=== PATIENT | female | born 1950 | race Caucasian/White ===

== ENCOUNTER 2016-10-08 06:45 | Emergency (ER) | payer OTHER, MEDICAID ==
[~2016-10-08] VITALS: Wt 72.0 kg
[2016-10-08] MEDS ORDERED: SOD CHLORIDE 0.9% 1,000 ML IV STA (07:37)
[2016-10-08 07:51] LABS: ADD UMIC YES; URINE BILIRUBIN (Dip) NEGATIVE (NEGATIVE); URINE BLOOD (Dip) TRACE (NEGATIVE); URINE COLOR LT. YELLOW (YELLOW); URINE GLUCOSE (Dip) NEGATIVE (NEGATIVE); URINE KETONES (Dip) NEGATIVE (NEGATIVE); URINE LEUKOCYTE ESTERASE (Dip) 1+ (NEGATIVE); URINE NITRITE (Dip) NEGATIVE (NEGATIVE); URINE TOTAL PROTEIN (Dip) 1+ (NEGATIVE); URINE UROBILINOGEN (Dip) 0.2 E.U./dL (0.1-1.0)
[2016-10-08 07:59] LABS: ALBUMIN 4.4 g/dl (3.3-4.9); BASOPHILS % 0.2 % (0.0-2.0); EOSINOPHILS # 0.2 10^3/ul (0.0-0.5); EOSINOPHILS % 1.9 % (0.0-7.0); HEMATOCRIT 40.1 % (37.0-47.0); HEMOGLOBIN 13.9 g/dl (12.0-16.0); LYMPHOCYTES % 30.4 % (15.0-51.0); MEAN CORPUSCULAR HEMOGLOBIN 29.9 pg (29.0-33.0); MEAN CORPUSCULAR HGB CONC 34.5 g/dl (32.0-37.0); MEAN CORPUSCULAR VOLUME 86.5 fl (82.0-101.0); MEAN PLATELET VOLUME 9.3 fl (7.4-10.4); MONOCYTE # 0.8 10^3/ul (0.3-0.9); MONOCYTES % 7.8 % (0.0-11.0); NEUTROPHILS % 59.7 % (39.0-77.0); PLATELET COUNT 226 10^3/UL (140-440); RED BLOOD COUNT 4.63 10^6/ul (4.20-5.40); RED CELL DISTRIBUTION WIDTH 12.8 % (11.5-14.5)
[2016-10-08 08:00] LABS: POTASSIUM 3.6 mmol/L (3.5-5.1)
[2016-10-08 08:02] LABS: BILIRUBIN,INDIRECT 0.2 mg/dl (0-1.1); BILIRUBIN,TOTAL 0.2 mg/dl (0.2-1.3); CONDITION 1; CREATININE 0.59 mg/dl (0.44-1.00)
[2016-10-08 08:03] LABS: ALBUMIN/GLOBULIN RATIO 1.51; CALCIUM 10.1 mg/dl (8.4-10.2); TOTAL PROTEIN 7.3 g/dl (6.1-8.1)
[2016-10-08 08:28] LABS: SQUAMOUS EPITHELIAL CELL,UR FEW; URINE RBCS 0-2 /HPF (0)
--- NOTE | 2016-10-08 08:44 | RADRPT ---
AMENDMENT: 10/08/2016 8:54:39 AM Pedro Nova M.D Metastatic disease although considered less likely given the lack of parenchymal edema is also a dif ferential diagnostic consideration. PROCEDURE: CT Brain without contrast. CLINICAL INDICATION: dizziness TECHNIQUE: A multiplanar CT of the brain was performed on a CT scanner utilizing axial imaging fro m the skull base through the vertex without IV contrast. One or more of the following dose reducti on techniques were utilized: Automated exposure control, adjustment of the mA and/or kV according t o patient size, use of iterative reconstruction technique. COMPARISON: None FINDINGS: There is an ill-defined evidence of lesion with coarse calcifications adjacent to or within the fron gilberto horn of the right lateral ventricle measuring 12 x 10 in millimeters in AP and transverse dimens ions respectively. There is no evidence of side vasogenic edema, mass effect or shift. Differential diagnostic considerations include intraventricular meningioma, subependymoma/ependymoma , central neurocytoma, or CPP. Astrocytoma, oligodendroglioma, or etiologies not excluded but consid ered less likely. MRI is recommended for further evaluation. There is no evidence of intracranial hemorrhage or abnormal extra-axial fluid collection. The remaining brain parenchyma is normal attenuation morphology with preservation of ann white diff erentiation and age appropriate size of the ventricles and subarachnoid spaces. The posterior fossa contents, brainstem, craniocervical junction, orbits, pituitary axis, paranasal sinuses, mastoid air cells, and calvarium are unremarkable. IMPRESSION: 1. 12 x 10 mm intraventricular/periventricular partially calcified hyperdense mass in the region of the anterior horn right lateral ventricle. Differential diagnostic considerations discussed in det ail above. No evidence of leobardo tumoral edema or shift . Contrast-enhanced MRI is recommended for fu rther evaluation. 2. No intracranial hemorrhage or other acute intracranial abnormality. RPTAT:AAJJ Physician Hilton Date Time Electronically viewed and signed by Physician Hilton on 10/08/2016 08:55 MIKAL/
[2016-10-08] MEDS ORDERED: BENZ100C70 PO (09:12)
[2016-10-08] MEDS ORDERED: D-ME473S18 PO (09:12)
[2016-10-08] MEDS ORDERED: NITR-58 PO (09:21)
[2016-10-08 09:26] VITALS: BP 121/65; PULSE 77; RESP 18
--- NOTE | 2016-10-08 13:10 | ERD ---
DATE OF SERVICE: HISTORY OF PRESENT ILLNESS: The patient is a 66-year-old female coming in complaining of a cough an d congestion with sore throat and some dizziness. Patient states it has been going on the last 5 da ys. She has had no fevers. She has had a productive cough and had a mild runny nose. She has had 1 episode of vomiting, no abdominal pain, no chest pain, or shortness of breath. Denies any changes in urination or bowel movement. No sick contacts. PAST MEDICAL HISTORY: Hypertension. ALLERGIES TO MEDICATION: Denies. SURGICAL HISTORY: Denies. SOCIAL HISTORY: Denies. REVIEW OF SYSTEMS: A 12-point review of systems was done. Refer to HPI for positives, all other sy stems negative. PHYSICAL EXAMINATION VITAL SIGNS: Temperature is 99.2, pulse is 100, blood pressure is 146/68, respiratory rate 22, O2 s aturation 98% on room air, and pain intensity of 5/10. GENERAL: The patient is well-appearing, well-nourished, in no acute distress. HEART: Regular rate and rhythm. No murmurs, clicks, rubs or gallops. No S3 or S4. CHEST: Clear to auscultation bilaterally. There are no rales, wheezes or rhonchi. HEENT: Atraumatic. Conjunctivae are pink. Pupils equal, round, and reactive to light. There is no s cleral icterus. Tympanic membranes clear bilaterally. Oropharynx clear. No nystagmus or photophobia . NEURO: Alert and oriented. Cranial nerves 2-12 intact. Motor strength in all 4 extremities with 5/5 strength. Sensation grossly intact. Normal speech and gait. Babinski negative. DTR 2+ throughout. SKIN: There is no apparent rash or petechia. The skin is warm and dry. BACK: No midline or flank tenderness. ABDOMEN: Soft, nontender and nondistended. Good bowel sounds. No rebound or guarding. No gross leobardo tonitis. No gross organomegaly or masses. No Santiago sign or McBurney point tenderness. EMERGENCY ROOM COURSE: The patient had blood work done in the ER. CBC was within normal limits. C MP was within normal limits. The patient's urine showed 1+ leukocytes with 10 to 25 white blood hilary ls. The patient had a brain CT done in the ER which showed a 12 x 10 mm intraventricular, periventricula r, partially calcified hyperdense mass in the region of the anterior horn of right lateral ventricle . Differential diagnosis considerations are intraventricular meningioma, subependymoma, centr al neurocytoma or a CPP astrocytoma, oligodendroglioma. Recommend close followup. No intracranial hemorrhage or other acute intracranial abnormality. Patient was given a liter of normal saline and reevaluated, and given Robitussin. Patient is ambula ting without any difficulties and did not appear to be off balance or have neuro deficits. DIAGNOSES 1. Upper respiratory infection. 2. Dizziness. 3. Urinary tract infection. MEDICAL DECISION MAKING: Patient's neurologic exam is within normal limits. Patient is ambulating without any difficulty. Patient does not appear toxic in nature. I did not feel that there was ind ication for further workup at this time. I have a low suspicion for intracranial hemorrhage or neur o deficits. The patient will be recommended to follow up with primary doctor for close evaluation. DISCHARGE: The patient is discharged stable. Patient is given a prescription for Phenergan DM and Tessalon. The patient was told to continue taking Keflex as previously prescribed for her urinary t ract infection. All other questions answered at time of discharge. Discharge summary given at the time of departure. Patient understood and complied with plan. Dictated By: KYLE PRADHAN for CECY DUFFY/XI Conf#: [id number] DID#: [id number]
== END 2016-10-08 09:27 | disposition home or self-care (01) ==
LOC: FTE 06:45
DX: J06.9 Acute upper respiratory infection, unspecified (principal); R42 Dizziness and giddiness; N39.0 Urinary tract infection, site not specified; I10 Essential (primary) hypertension
CPT/HCPCS: 36415; 70450; 80053; 81001; 83690; 85025; 99285; J7030; 81003

== ENCOUNTER 2018-12-19 23:38 | Emergency (ER) | payer OTHER, MEDICAID ==
[~2018-12-19] VITALS: Wt 74.4 kg
[~2018-12-19 23:38] MED LIST: BENZ-6 PO; D-ME473S18 PO
[2018-12-19 23:46] VITALS: BP 159/77; PULSE 78; RESP 18
[2018-12-20] MEDS ORDERED: ONDANSETRON (ODT) 4 MG TAB ODT STA (03:49)
[2018-12-20] MEDS ORDERED: MECLIZINE 12.5 MG TAB PO ONE (04:00)
[2018-12-20] MEDS ORDERED: ONDA4TAB14 PO (04:41)
[2018-12-20] MEDS ORDERED: MECL-77 PO (04:42)
--- NOTE | 2018-12-20 04:45 | ERD ---
ER Documentation Chief Complaint Chief Complaint dizziness/nausea x 5 hours HPI 68-year-old female presents for dizziness and nausea x5 hours. She has past medical history of hypertension and GERD. She states that she has some nausea however denies any vomiting. Denies fevers. Denies shortness of breath or chest pain. She is able to walk despite being dizzy. She denies any weakness. No other modifying factors noted. No other treatments tried at home. ROS All systems reviewed and are negative except as per history of present illness. Medications Home Meds Active Scripts Meclizine Hcl* (Meclizine Hcl*) 25 Mg Tablet, 25 MG PO Q8H PRN for DIZZINESS, #30 TAB Prov:ASTERANGELA 12/20/18 Ondansetron (Ondansetron Odt) 4 Mg Tab.rapdis, 4 MG PO Q6H PRN for NAUSEA AND/OR VOMITING, #15 TAB Prov:ANGELA RODARTE DO 12/20/18 Benzonatate* (Tessalon Perle*) 100 Mg Capsule, 100 MG PO TID, #30 CAP Prov:TEOFILO LYNN PA-C 10/08/16 Dextromethorphan Hb-Promethazine Hcl (Promethazine DM Syrup) 473 Ml Syrup, 5 ML PO Q6H PRN for COUGH, #4 OZ Prov:TEOFILO LYNN PA-C 10/08/16 Allergies Allergies: Coded Allergies: No Known Allergy (Unverified , 11/08/14) PMhx/Soc Medical and Surgical Hx: pt denies Surgical Hx Hx Alcohol Use: No Hx Substance Use: No Hx Tobacco Use: No Smoking Status: Never smoker FmHx Family History: No coronary disease Physical Exam Vitals Vital Signs Date Temp Pulse Resp B/P (MAP) Pulse Ox O2 O2 Flow FiO2 Time Delivery Rate 12/19/18 97.7 78 18 159/77 98 23:46 (104) Physical Exam Const: No acute distress Head: Atraumatic Eyes: Normal Conjunctiva ENT: Normal External Ears, Nose and Mouth. Neck: Full range of motion. No meningismus. Resp: Clear to auscultation bilaterally Cardio: Regular rate and rhythm, no murmurs Abd: Soft, non tender, non distended. Normal bowel sounds Skin: No petechiae or rashes Back: No midline or flank tenderness Ext: No cyanosis, or edema Neur: Awake and alert Psych: Normal Mood and Affect Results 24 hrs Current Medications Medications Dose Sig/Mitul Start Time Status Last (Trade) Ordered Route PRN Stop Time Admin Dose Reason Admin Ondansetron 4 mg ONCE STAT 12/20/18 DC 12/20/18 HCl (Zofran ODT 03:49 12/20/18 04:10 Odt) 03:50 Meclizine 25 mg ONCE ONCE 12/20/18 DC 12/20/18 HCl PO 04:00 12/20/18 04:10 (Antivert) 04:01 Procedures/MDM Medical Decision Making: Differential diagnosis includes but not limited to electrolyte abnormality, benign positional vertigo, cerebellar infarct Patient appeared well on physical exam. Patient was neurovascularly intact ED course: Patient was given meclizine and Zofran. Symptoms improved with treatment. Patient possibly has benign positional vertigo Prescription(s): Patient given prescription for supportive medication(s). Patient advised to follow up with PCP in 1-2 days. Patient advised to return to ED for new or worsening symptoms. Patient stable on discharge from the ED. Disclaimer: Inadvertent spelling and grammatical errors are likely due to EHR/dictation software use and do not reflect on the overall quality of patient care. Also, please note that the electronic time recorded on this note does not necessarily reflect the actual time of the patient encounter. Departure Diagnosis: Primary Impression: Dizziness Condition: Fair Patient Instructions: Possible Causes of Dizziness or Fainting, Dizziness (Vertigo) and Balance Problems: Ensuring Your Safety Referrals: [facility] YOU HAVE RECEIVED A MEDICAL SCREENING EXAM AND THE RESULTS INDICATE THAT YOU DO NOT HAVE A CONDITION THAT REQUIRES URGENT TREATMENT IN THE EMERGENCY DEPARTMENT. FURTHER EVALUATION AND TREATMENT OF YOUR CONDITION CAN WAIT UNTIL YOU ARE SEEN IN YOUR DOCTORS OFFICE WITHIN THE NEXT 1-2 DAYS. IT IS YOUR RESPONSIBILITY TO MAKE AN APPOINTMENT FOR FOLOW-UP CARE. IF YOU HAVE A PRIMARY DOCTOR --you should call your primary doctor and schedule an appointment IF YOU DO NOT HAVE A PRIMARY DOCTOR YOU CAN CALL OUR PHYSICIAN REFERRAL HOTLINE AT IF YOU CAN NOT AFFORD TO SEE A PHYSICIAN YOU CAN CHOSE FROM THE FOLLOWING [facility] [address] [facility]. [facility] [address] [facility] [address] [facility] [address] [facility] [address] [facility]. [facility] [address] Additional Instructions: Llame al doctor MAANA y jigar jose DEDE PARA DENTRO DE 1-2 [place].Dgale a la secretaria que nosotros le instruimos hacer esta dede.Avise o llame si velez condicin se empeora antes de la dede. Regresa aqui si peor o no mejor. ANGELA RODARTE DO December 20, 2018 04:45
== END 2018-12-20 04:53 | disposition home or self-care (01) ==
LOC: FTE 23:38
DX: R42 Dizziness and giddiness (principal); I10 Essential (primary) hypertension
CPT/HCPCS: 99283